=== PATIENT | male | born 1990 | race Caucasian/White ===

== ENCOUNTER → 2018-08-08 14:45 | Outpatient (CLI) | payer OTHER, SELFPAY ==
--- NOTE | 2018-08-08 14:50 | RAD_ITS ---
STUDY: X-RAY - RIGHT FOOT CLINICAL: Pain at the base of the second toe, no specific injury. TECHNIQUE: 3 view(s) of the foot. COMPARISON: None. FINDINGS: Normal talus, calcaneus, and tarsal bones. Normal visualized subtalar, talonavicular, calcaneocuboid, tarsal and tarsometatarsal articulations. Normal metatarsi. There are small marginal osteophytes of the metatarsophalangeal joint of the great toe without substantial joint space narrowing. There is a bipartite tibial sesamoid. Normal interphalangeal joint of the great toe. Normal phalanges of the great toe. Normal second through fifth metatarsophalangeal joints. Normal interphalangeal joints and phalanges of the lesser toes. The soft tissue structures are unremarkable. RAD/Foot min 3 Views IMPRESSION: Small marginal osteophytes of the first metatarsophalangeal joint. Otherwise, unremarkable x-ray examination of the right foot. Electronically Signed: West Jalloh MD at 11:47 EST Tel , Service support ,
== END ==
PROVIDERS: Referring Provider Physician Assistant; Visit Provider Physician Assistant
DX: M79.671 Pain in right foot (principal)
CPT/HCPCS: 73630